=== PATIENT | female | born 1970 | race Caucasian/White ===

== ENCOUNTER 2017-11-30 17:29 | Emergency (ER) | payer BC, OTHER ==
[2017-11-30] MEDS ORDERED: ONDANSETRON 4 MG/2 ML VIAL IVP ONE (18:33)
[2017-11-30] MEDS ORDERED: NS 1,000 ML IV ONE (18:33)
--- NOTE | 2017-11-30 18:39 | EDPHY ---
H & P Stated Complaint: + preg test lower abd pain lmp 10/22 Source: Patient Exam Limitations: No limitations - Personal History LMP (Females 10-55): Current Tetanus/Diphtheria Vaccine: Yes Tetanus Vaccine Date: 2012 - Medical/Surgical History Hx Asthma: No Hx Chronic Respiratory Disease: No Hx Diabetes: No Hx Cardiac Disease: No Hx Renal Disease: No Hx Cirrhosis: No Hx Alcoholism: No Hx HIV/AIDS: No Hx Splenectomy or Spleen Trauma: No Other PMH: RUE DVT, DIVERTICULITIS, [place] anxiety, paplitations - Family History Significant Family History: No pertinent family hx - Social History Smoking Status: Never smoked Alcohol Use: Sober Drug Use: None Time Seen by Provider: 11/30/17 18:25 HPI/ROS: CHIEF COMPLAINT: Suprapubic pain HISTORY OF PRESENT ILLNESS: Patient is a 47-year-old female who comes to the emergency department complaining of suprapubic pain that began yesterday she describes as crampy. No bleeding. She took a test today that was positive. Her last menstrual period was October 22. Her 1st 2 pregnancies delivered without any difficulty. Full-term vaginal deliveries. No vomiting but has felt slightly nauseous. No diarrhea. No chest pain or shortness of breath. No dysuria or frequency. She did have diverticulitis 1 several years ago but states that this does not feel similar. She has irregular periods and is perimenopausal. No discharge, no bleeding. REVIEW OF SYSTEMS: Constitutional: denies: chills, fever, recent illness, recent injury EENTM: denies: blurred vision, double vision, nose congestion Respiratory: denies: cough, shortness of breath Cardiac: denies: chest pain, irregular heart rate, lightheadedness, palpitations Gastrointestinal/Abdominal: denies: abdominal pain, diarrhea, nausea, vomiting, blood streaked stools Genitourinary: See HPI Musculoskeletal: denies: joint pain, muscle pain Skin: denies: lesions, rash, jaundice, bruising Neurological: denies: headache, numbness, paresthesia, tingling, dizziness, weakness Hematologic/Lymphatic: denies: blood clots, easy bleeding, easy bruising Immunologic/allergic: denies: HIV/AIDS, transplant EXAM: GENERAL: Well-appearing, well-nourished and in no acute distress. HEAD: Atraumatic, normocephalic. EYES: Pupils equal round and reactive to light, extraocular movements intact, sclera anicteric, conjunctiva are normal. ENT: TMs normal, nares patent, oropharynx clear without exudates. Moist mucous membranes. NECK: Normal range of motion, supple without lymphadenopathy or JVD. LUNGS: Breath sounds clear to auscultation bilaterally and equal. No wheezes rales or rhonchi. HEART: Regular rate and rhythm without murmurs, rubs or gallops. ABDOMEN: Suprapubic tenderness, no guarding or rebound. BACK: No CVA tenderness, no spinal tenderness, step-offs or deformities EXTREMITIES: Normal range of motion, no pitting or edema. No clubbing or cyanosis. NEUROLOGICAL: Cranial nerves II through XII grossly intact. Normal speech, normal gait. 5/5 strength, normal movement in all extremities, normal sensation PSYCH: Normal mood, normal affect. SKIN: Warm, dry, normal turgor, no visible rashes or lesions. (Justice Wall) Constitutional: Initial Vital Signs Temperature (C) 36.8 C 11/30/17 17:53 Heart Rate 97 11/30/17 17:53 Respiratory Rate 16 11/30/17 17:53 Blood Pressure 135/97 H 11/30/17 17:53 O2 Sat (%) 96 11/30/17 17:53 O2 Delivery Mode Room Air Allergies/Adverse Reactions: Iodinated Contrast- Oral and IV Dye [Iodinated Contrast Media - IV Dye] Allergy (Verified 11/30/17 17:53) iopamidol [From Isovue-M] Allergy (Verified 11/30/17 17:53) Other-Enter Comments Home Medications: Medication Instructions Recorded Ciprofloxacin HCl [Ciprofloxacin] 500 mg PO BID #14 tab 11/30/17 metroNIDAZOLE [Metronidazole] 500 mg PO TID #21 tablet 11/30/17 Medical Decision Making - Diagnostics Imaging: Discussed imaging studies w/ kiln operator helper Radiologist - Diagnostics Imaging Results: Imaging Impressions Pelvic/Renal Ultrasound 11/30/17 18:33 Impression: 1. of unknown location. No intrauterine gestation or evidence of ectopic . Recommend followup. 2. Trace free fluid. 3. No adnexal mass. Findings discussed with Emergency Department physician, Justice Wall on 2017, 19:51. Abdomen CT 11/30/17 20:14 Impression: 1. Sigmoid diverticulitis. No abscess or perforation. 2. Right nephrolithiasis. No hydronephrosis or ureteral calculi. Findings discussed with Emergency Department physician, Dr. Navin Magaña on November 30, 2017 at 2150. ED Course/Re-evaluation: 8:15 p.m. the patient's test here is negative. I am concerned about appendicitis considering the tenderness of her abdomen although it is midline. She may have a retrocecal appendix. Will also perform a pelvic exam. She is allergic to contrast. I will pretreat her with steroids and Benadryl. 9:00 p.m. pelvic exam performed. No discharge or bleeding or pelvic motion tenderness. Will proceed with CT scan. 9:20 p.m. care transferred to Dr. Navin Magaña. If the patient's CT is unremarkable anticipate she will go home with early follow-up. The patient would prefer to go home. (Justice Wall) Differential Diagnosis: Partial list of the Differential diagnosis considered include but were not limited to; a urinary tract infection, , ectopic, appendicitis and although unlikely based on the history and physical exam, I also considered ovarian cyst, ovarian torsion, cancer, diverticulitis. (Justice Wall) Other Provider: Care assumed from [facility] at 0, has sigmoid diverticulitis without perforation or abscess per Brayan at 2153. Patient tolerated CT without adverse reaction. test reviewed as negative. Results discussed with the patient in detail at this time. She would like to go home which I think is reasonable. She does not have severe pain or vomiting and does not have perforation or abscess. This is her 2nd episode of diverticulitis. We discussed risk benefit and alternatives including black box warning for Achilles tendon problems with ciprofloxacin and Flagyl versus Augmentin, and consented Cipro and Flagyl. Started in the emergency department. Follow up with her primary care physician' s office this Wednesday as already scheduled. (Navin Magaña) - Data Points Laboratory Results: Laboratory Results 11/30/17 18:40 11/30/17 18:40 11/30/17 11/30/17 11/30/17 18:50 18:50 18:40 Sodium 139 mEq/L mEq/L (135-145) Potassium 3.6 mEq/L mEq/L (3.5-5.2) Chloride 103 mEq/L mEq/L (97-110) Carbon Dioxide 23 mEq/l mEq/l (22-31) Anion Gap 13 mEq/L mEq/L (8-16) BUN 15 mg/dL mg/dL (7-23) Creatinine 0.7 mg/dL mg/dL (0.6-1.0) Estimated GFR > 60 Glucose 91 mg/dL mg/dL (70-100) Calcium 8.9 mg/dL mg/dL (8.5-10.4) Beta HCG, Quant < 2.39 mIU/mL mIU/mL (0.00-4.83) Urine Color YELLOW Urine Appearance CLEAR Urine pH 5.0 (5.0-7.5) Ur Specific Barry 1.030 (1.002-1.030) Urine Protein 1+ H (NEGATIVE) Urine Ketones NEGATIVE (NEGATIVE) Urine Blood NEGATIVE (NEGATIVE) Urine Nitrate NEGATIVE (NEGATIVE) Urine Bilirubin NEGATIVE (NEGATIVE) Urine Urobilinogen NEGATIVE EU EU (0.2-1.0) Ur Leukocyte Esterase NEGATIVE (NEGATIVE) Urine RBC 10-15 /hpf H /hpf (0-3) Urine WBC 1-3 /hpf /hpf (0-3) Ur Epithelial Cells TRACE /lpf /lpf (NONE-1+) Urine Mucus TRACE /lpf /lpf (NONE-1+) Urine Glucose NEGATIVE (NEGATIVE) Patient ABO/Rh B NEGATIVE Medications Given: Discontinued Medications Ciprofloxacin (Cipro) 500 mg PO EDNOW ONE PRN Reason: Protocol Stop: 11/30/17 22:06 Last Admin: 11/30/17 22:18 Dose: 500 mg Diphenhydramine HCl (Benadryl Injection) 50 mg IVP EDNOW ONE Stop: 11/30/17 20:15 Last Admin: 11/30/17 20:30 Dose: 50 mg Hydromorphone HCl (Dilaudid) 0.5 mg IVP EDNOW ONE Stop: 11/30/17 18:41 Last Admin: 11/30/17 19:08 Dose: 0.5 mg Hydromorphone HCl (Dilaudid) 1 mg IVP EDNOW ONE Stop: 11/30/17 20:16 Last Admin: 11/30/17 22:23 Dose: Not Given Sodium Chloride (Ns) 1,000 mls @ 0 mls/hr IV ONCE ONE; Wide Open PRN Reason: Protocol Stop: 11/30/17 18:34 Last Admin: 11/30/17 18:45 Dose: 1,000 mls Methylprednisolone Sodium Succinate (Solu-Medrol) 125 mg IVP EDNOW ONE Stop: 11/30/17 20:15 Last Admin: 11/30/17 20:30 Dose: 125 mg Metronidazole (Flagyl) 500 mg PO EDNOW ONE PRN Reason: Protocol Stop: 11/30/17 22:06 Last Admin: 11/30/17 22:18 Dose: 500 mg Ondansetron HCl (Zofran) 4 mg IVP EDNOW ONE Stop: 11/30/17 18:34 Last Admin: 11/30/17 18:46 Dose: 4 mg Departure - Departure Disposition: Home, Routine, Self-Care Clinical Impression: Diverticulitis of sigmoid colon Condition: Good Instructions: Diverticulitis (ED) Referrals: Yony Thomas MD [Primary Care Provider] - As per Instructions Wayne Pitts MD, FACG [Medical Doctor] - As per Instructions Prescriptions: Ciprofloxacin HCl [Ciprofloxacin] 500 mg PO BID #14 tab metroNIDAZOLE [Metronidazole] 500 mg PO TID #21 tablet
[2017-11-30] MEDS ORDERED: HYDROmorphONE/DILAUDID 1 MG/ML INJ IVP ONE ×2 (18:40→20:15)
[2017-11-30 18:47] VITALS: RESP 18
[2017-11-30 18:48] LABS: PLATELET COUNT 263 10^3/uL (150-400)
[2017-11-30] MEDS ORDERED: methylPREDNISolone SOD SUCC 125 MG/2 ML VIAL IVP ONE (20:14)
[2017-11-30] MEDS ORDERED: IOPAMIDOL (ISOVUE-300) 100 ML BTL ONE (20:45)
[2017-11-30] MEDS ORDERED: CIPROFLOXACIN 500 MG TAB PO ONE (22:05)
[2017-11-30] MEDS ORDERED: metroNIDAZOLE 500 MG TAB PO ONE (22:05)
[2017-11-30 22:29] VITALS: BP 137/87; PULSE 93; TEMP 99.1; O2SAT 99
== END 2017-11-30 22:30 | disposition home or self-care (01) ==
PROC: 3E0337Z Introduction of Electrolytic and Water Balance Substance into Peripheral Vein, Percutaneous Approach (ICD-10-PCS; principal; 2017-11-30)
DX: O99.619 Diseases of the digestive system complicating pregnancy, unspecified trimester (principal); K57.32 Diverticulitis of large intestine without perforation or abscess without bleeding; E86.9 Volume depletion, unspecified
CPT/HCPCS: 96374; J1170; J1200; J2405; J2930; Q9967